=== PATIENT | male | born 1975 | race Caucasian/White ===

== ENCOUNTER 2022-06-24 13:10 | Inpatient (IN) ==
--- NOTE | 2022-06-24 13:26 | Emergency Department Note ---
Impression & Plan Depression with suicidal ideation, History of epilepsy ED Provider Note NAME: CASEY RESTREPO AGE: 47 SEX: M : 1975 ARRIVES VIA: Ambulance INFORMANT: Patient, ED PROVIDER(S): Gabriel Haji MD Chief Complaint: Suicidal ideation HPI: Patient presents with suicidal ideation and depression. The patient is u ndomiciled but currently living with a brother locally. The patient had come from the [facility] to try and repair relationship with his estranged . The patient does smoke tobacco as well as marijuana but no drug or alcohol use. 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 Patient states that he had a razor blade and was considering killing himself with that last evening but that his brother had talked him down. He is currently living in a trailer with his brother. Patient denies any HI. The patient does occasionally have auditory hallucinations words his own voice, questioning what he is doing. Patient denies any command hallucinations. No visual hallucinations. The patient denies any access to guns or weapons. Patient was last inpatient in [place]. Patient was last seen here in the emergency department 1 to 2 months ago. Patient has not been taking his medications for approximately 1 week. MDM: Patient presents due to concern for suicidal ideation with a plan to try and cut himself. Patient did have blood work completed was seen and evaluated by psych residential case manager after being deemed medically clear. Referrals were made for i npatient psychiatric admission. Patient was admitted to [facility] for inpatient psychiatric admission. ROS: See HPI for pertinent positives and negatives. A total of 10 systems were reviewed and otherwise negative. Past medical history: See below Surgical history: See below Social history: See below Physical Exam: GENERAL: NAD, nontoxic. Cleft palate s/p repair noted. EYE EXAM: Normal conjunctiva. PERRL, no anisocoria and EOM's grossly intact w/o pain. NECK: Supple, no nuchal rigidity, no adenopathy, non-tender. No signs of meningismus. FROM of the neck with good chin to chest and neck extension. No stridor. LUNGS: Clear to auscultation. Normal chest wall mechanics. HEART: NSR, no MRG. ABDOMEN: Abdomen soft, non-tender, normo-active bowel sounds, no masses, no rebound or guarding. BACK: No CVA TTP. SKIN: No rashes and no bruising. UPPER EXTREMITIES: Upper extremities are grossly normal. LOWER EXTREMITIES: Grossly normal, no edema. NEURO EXAM: A&O x3, cranial nerves II-XII grossly intact, normal speech, moves all 4 extremities. Psych: Positive SI with plan negative HI or VH. Positive auditory hallucinations Differential diagnoses: Mood disorder, infection, hypoglycemia, electrolyte abnormalities, cardiac sources, intracerebral event, toxicologic, trauma, neurologic, as well as other pathologies. Course: Patient was seen and evaluated the bedside. Full history physical exam was performed. 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 No pertinent family history Seizure Surgical History History of repair of congenital cleft palate Social History Smoking Status: Current some day smoker Tobacco Type: Cigarettes Preferred Language: Vietnamese Feels Safe at Home: Yes, No and Declines to Answer Home Meds Home Medications Medication Instructions Recorded Confirmed levetiracetam 500 mg tablet 1,000 mg PO UD 05/13/22 06/24/22 paroxetine HCl 1 tab PO DAILY 06/24/22 06/24/22 Results & Data (ED) Vital Signs Vital Signs - 24 hr 06/24/22 12:57 06/24/22 13:01 06/24/22 16:16 Temperature 36.6 C Temperature Source Oral Pulse Rate 95 H Pulse Rate [Apical] 95 H 68 Respiratory Rate 18 16 16 Blood Pressure 137/93 Blood Pressure [Left Arm] 137/93 128/88 Blood Pressure Mean 107 Blood Pressure Mean [Left Arm] 107 101 Pulse Oximetry 99 99 95 Sepsis Recent Fever Within 48 Hours No Sepsis New/Unexplained Change in Mental Status No Sepsis Action Taken by Nursing No Action Required Home Medications Current Medication List: was personally reviewed by me Laboratory Data Attestation: I reviewed the patient's lab results. Result diagrams: 06/24/22 14:09 06/24/22 14:09 Lab Results 06/24/22 06/24/22 06/24/22 Range/Units 13:30 13:30 13:32 WBC (4.8-10.8) K/ul RBC (4.63-6.08) M/uL Hgb (14.0-18.0) g/dl Hct (40.1-51.0) % MCV (80.0-100.0) fL MCH (25.0-34.0) pg MCHC (32.0-36.0) g/dL RDW Std Deviation (36.4-46.3) fL RDW Coeff of Whitney (11.5-14.5) % Plt Count (130-400) K/uL MPV (9.4-12.4) fL Immature Gran % (Auto) % Neut % (Auto) % Lymph % (Auto) % [place] % (Auto) % Eos % (Auto) % Baso % (Auto) % Neut # (Auto) (1.4-6.5) K/uL Lymph # (Auto) (1.2-3.4) K/uL [place] # (Auto) (0.24-0.82) K/uL Eos # (Auto) (0-0.50) K/uL Baso # (Auto) (0-0.2) K/uL Immature Gran # (Auto) (0.00-0.02) K/uL Sodium (136-145) mmol/L Potassium (3.5-5.1) mmol/L Chloride (98-107) mmol/L Carbon Dioxide (21-32) mmol/L Anion Gap (3-11) BUN (6-23) mg/dl Creatinine (0.6-1.4) mg/dl Est Cr Clr Drug Dosing ml/min Est GFR ( Amer) ml/min Est GFR (Non-Af Amer) ml/min BUN/Creatinine Ratio (10-20) Glucose (70-99(Fasting)) mg/dl Calcium (8.5-10.1) mg/dl Total Bilirubin (0.2-1.0) mg/dl AST (13-39) U/L ALT (7-52) U/L Alkaline Phosphatase (34-104) U/L Total Protein (6.0-8.3) gm/dl Albumin (3.4-5.0) gm/dl Globulin (2.5-4.0) gm/dl Albumin/Globulin Ratio (0.9-2) TSH (0.300-4.500) uIu/ml Urine Color Dark Yellow Urine Appearance Clear (Clear) Urine pH 5.0 (4.5-7.5) Ur Specific [place] 1.026 (1.000-1.030) Urine Protein Trace H (Negative) Urine Glucose (UA) 2+ H (Negative) Urine Ketones Trace H (Negative) Urine Blood Negative (Negative) Urine Nitrite Negative (Negative) Urine Bilirubin 1+ H (Negative) Urine Urobilinogen Negative (Negative) Ur Leukocyte Esterase Negative (Negative) Urine WBC (Auto) 1-5 (0-5) /hpf Urine RBC (Auto) 0-4 (0-4) /hpf U Hyaline Cast (Auto) 1-5 (0-5) /lpf U Epithel Cells (Auto) 10-20 H (0-5) /lpf Urine Bacteria (Auto) Negative (Negative) Salicylates (3.0-30) mg/dl Urine Opiates Screen Pos H (Neg) Ur Methadone, Qual Neg (Neg) Acetaminophen (10-30) ug/ml Urine Barbiturates Neg (Neg) Ur Phencyclidine (PCP) Neg (Neg) U Amphetamin/Meth Scrn Neg (Neg) MDMA (Ecstasy) Screen Neg (Neg) U Benzodiazepines Scrn Neg (Neg) Ur Cocaine Metabolite Neg (Neg) U Marijuana (THC) Screen Pos H (Neg) Ethyl Alcohol mg/dL (<10.0) mg/dl SARS-CoV-2, RNA, NAAT NEGATIVE (NEGATIVE) 06/24/22 06/24/22 06/24/22 Range/Units 14:09 14:09 14:09 WBC 6.85 (4.8-10.8) K/ul RBC 5.00 (4.63-6.08) M/uL Hgb 15.5 (14.0-18.0) g/dl Hct 44.0 (40.1-51.0) % MCV 88.0 (80.0-100.0) fL MCH 31.0 (25.0-34.0) pg MCHC 35.2 (32.0-36.0) g/dL RDW Std Deviation 42.9 (36.4-46.3) fL RDW Coeff of Whitney 13.2 (11.5-14.5) % Plt Count 185 (130-400) K/uL MPV 10.1 (9.4-12.4) fL Immature Gran % (Auto) 0.3 % Neut % (Auto) 50.8 % Lymph % (Auto) 34.2 % [place]one % (Auto) 11.7 % Eos % (Auto) 1.5 % Baso % (Auto) 1.5 % Neut # (Auto) 3.49 (1.4-6.5) K/uL Lymph # (Auto) 2.34 (1.2-3.4) K/uL [place]one # (Auto) 0.80 (0.24-0.82) K/uL Eos # (Auto) 0.10 (0-0.50) K/uL Baso # (Auto) 0.10 (0-0.2) K/uL Immature Gran # (Auto) 0.02 (0.00-0.02) K/uL Sodium 139 (136-145) mmol/L Potassium 4.6 (3.5-5.1) mmol/L Chloride 106 (98-107) mmol/L Carbon Dioxide 25 (21-32) mmol/L Anion Gap 8 (3-11) BUN 10 (6-23) mg/dl Creatinine 0.93 (0.6-1.4) mg/dl Est Cr Clr Drug Dosing 89.3 ml/min Est GFR ( Amer) 112.1 ml/min Est GFR (Non-Af Amer) 96.7 ml/min BUN/Creatinine Ratio 10.8 (10-20) Glucose 81 (70-99(Fasting)) mg/dl Calcium 9.6 (8.5-10.1) mg/dl Total Bilirubin 0.6 (0.2-1.0) mg/dl AST 17 (13-39) U/L ALT 12 (7-52) U/L Alkaline Phosphatase 68 (34-104) U/L Total Protein 7.3 (6.0-8.3) gm/dl Albumin 4.4 (3.4-5.0) gm/dl Globulin 2.9 (2.5-4.0) gm/dl Albumin/Globulin Ratio 1.5 (0.9-2) TSH 0.886 (0.300-4.500) uIu/ml Urine Color Urine Appearance (Clear) Urine pH (4.5-7.5) Ur Specific [place] (1.000-1.030) Urine Protein (Negative) Urine Glucose (UA) (Negative) Urine Ketones (Negative) Urine Blood (Negative) Urine Nitrite (Negative) Urine Bilirubin (Negative) Urine Urobilinogen (Negative) Ur Leukocyte Esterase (Negative) Urine WBC (Auto) (0-5) /hpf Urine RBC (Auto) (0-4) /hpf U Hyaline Cast (Auto) (0-5) /lpf U Epithel Cells (Auto) (0-5) /lpf Urine Bacteria (Auto) (Negative) Salicylates (3.0-30) mg/dl Urine Opiates Screen (Neg) Ur Methadone, Qual (Neg) Acetaminophen (10-30) ug/ml Urine Barbiturates (Neg) Ur Phencyclidine (PCP) (Neg) U Amphetamin/Meth Scrn (Neg) MDMA (Ecstasy) Screen (Neg) U Benzodiazepines Scrn (Neg) Ur Cocaine Metabolite (Neg) U Marijuana (THC) Screen (Neg) Ethyl Alcohol mg/dL (<10.0) mg/dl SARS-CoV-2, RNA, NAAT (NEGATIVE) 06/24/22 06/24/22 Range/Units 14:09 14:09 WBC (4.8-10.8) K/ul RBC (4.63-6.08) M/uL Hgb (14.0-18.0) g/dl Hct (40.1-51.0) % MCV (80.0-100.0) fL MCH (25.0-34.0) pg MCHC (32.0-36.0) g/dL RDW Std Deviation (36.4-46.3) fL RDW Coeff of Whitney (11.5-14.5) % Plt Count (130-400) K/uL MPV (9.4-12.4) fL Immature Gran % (Auto) % Neut % (Auto) % Lymph % (Auto) % [place] % (Auto) % Eos % (Auto) % Baso % (Auto) % Neut # (Auto) (1.4-6.5) K/uL Lymph # (Auto) (1.2-3.4) K/uL [place] # (Auto) (0.24-0.82) K/uL Eos # (Auto) (0-0.50) K/uL Baso # (Auto) (0-0.2) K/uL Immature Gran # (Auto) (0.00-0.02) K/uL Sodium (136-145) mmol/L Potassium (3.5-5.1) mmol/L Chloride (98-107) mmol/L Carbon Dioxide (21-32) mmol/L Anion Gap (3-11) BUN (6-23) mg/dl Creatinine (0.6-1.4) mg/dl Est Cr Clr Drug Dosing ml/min Est GFR ( Amer) ml/min Est GFR (Non-Af Amer) ml/min BUN/Creatinine Ratio (10-20) Glucose (70-99(Fasting)) mg/dl Calcium (8.5-10.1) mg/dl Total Bilirubin (0.2-1.0) mg/dl AST (13-39) U/L ALT (7-52) U/L Alkaline Phosphatase (34-104) U/L Total Protein (6.0-8.3) gm/dl Albumin (3.4-5.0) gm/dl Globulin (2.5-4.0) gm/dl Albumin/Globulin Ratio (0.9-2) TSH (0.300-4.500) uIu/ml Urine Color Urine Appearance (Clear) Urine pH (4.5-7.5) Ur Specific [place] (1.000-1.030) Urine Protein (Negative) Urine Glucose (UA) (Negative) Urine Ketones (Negative) Urine Blood (Negative) Urine Nitrite (Negative) Urine Bilirubin (Negative) Urine Urobilinogen (Negative) Ur Leukocyte Esterase (Negative) Urine WBC (Auto) (0-5) /hpf Urine RBC (Auto) (0-4) /hpf U Hyaline Cast (Auto) (0-5) /lpf U Epithel Cells (Auto) (0-5) /lpf Urine Bacteria (Auto) (Negative) Salicylates < 3.0 L (3.0-30) mg/dl Urine Opiates Screen (Neg) Ur Methadone, Qual (Neg) Acetaminophen < 3 L (10-30) ug/ml Urine Barbiturates (Neg) Ur Phencyclidine (PCP) (Neg) U Amphetamin/Meth Scrn (Neg) MDMA (Ecstasy) Screen (Neg) U Benzodiazepines Scrn (Neg) Ur Cocaine Metabolite (Neg) U Marijuana (THC) Screen (Neg) Ethyl Alcohol mg/dL < 10.0 (<10.0) mg/dl SARS-CoV-2, RNA, NAAT (NEGATIVE) Administered Medications Nicotine (Nicotine 21 Mg/24 Hr Tdsy) 21 mg TD QAM OSCAR Stop: 07/24/22 16:14 Last Admin: 06/24/22 16:24 Dose: Not Given Documented By: BK Discontinued Medications Levetiracetam (Levetiracetam 500 Mg Tab) 1,000 mg PO ONE ONE Stop: 06/24/22 16:07 Last Admin: 06/24/22 16:20 Dose: 1,000 mg Documented By: CONNIE Nicotine (Nicotine 21 Mg/24 Hr Tdsy) Confirm Administered Dose 21 mg TD .STK-MED ONE Stop: 06/24/22 14:14 Last Admin: 06/24/22 14:20 Dose: 21 mg Documented By: NRScott Discharge Plan Visit Data Chief Complaint: Mental Health Evaluation Stated Complaint: [facility]ID ED Provider: Gabriel Haji Discharge Problem: Depression with suicidal ideation, History of epilepsy Forms Stand Alone Forms: [facility], Suicide Prevention Resources Prescriptions Prescriptions: No Action levetiracetam 500 mg tablet 1,000 mg PO UD paroxetine HCl 10 mg 1 tab PO DAILY Rx Instructions: called pharmacy 10mg Referrals Referrals: PCP,NO [Primary Care Provider] -
[2022-06-24] MEDS ORDERED: NICOTINE 21 MG/24 HR TDSY TD ONE (14:13)
[2022-06-24 14:20] LABS: Appearance Urine Clear (Clear); Bacteria Urine Automated Negative (Negative); Blood Urine Negative (Negative); Color Urine Dark Yellow; Glucose Urine UA 2+ (Negative); Ketones Urine Trace (Negative); Leukocyte Esterase Urine Negative (Negative); Nitrite Urine Negative (Negative); Protein Urine Trace (Negative); RBC Urine Automated 0-4 /hpf (0-4); Specific Gravity Urine 1.026 (1.000-1.030); Urobilinogen Urine Negative (Negative)
[2022-06-24 14:23] LABS: Basophils % (auto) 1.5 %; Eosinophils % (auto) 1.5 %; Hemoglobin 15.5 g/dl (14.0-18.0); Immature Granulocytes # (auto) 0.02 K/uL (0.00-0.02); Immature Granulocytes % (auto) 0.3 %; Lymphocytes # (auto) 2.34 K/uL (1.2-3.4); Lymphocytes % (auto) 34.2 %; Mean Corpuscular Hgb Conc 35.2 g/dL (32.0-36.0); Mean Platelet Volume 10.1 fL (9.4-12.4); Monocytes % (auto) 11.7 %; Neutrophils # (auto) 3.49 K/uL (1.4-6.5); Neutrophils % (auto) 50.8 %; Platelet Count 185 K/uL (130-400); RDW Coefficient of Variation 13.2 % (11.5-14.5); RDW Standard Deviation 42.9 fL (36.4-46.3); White Blood Count 6.85 K/ul (4.8-10.8)
[2022-06-24 14:25] LABS: Bilirubin Urine 1+ (Negative)
[2022-06-24 14:35] LABS: Amphetamines+Metham, Urine Neg (Neg); Barbiturates, Urine Neg (Neg); Benzodiazepine, Urine Neg (Neg); Cocaine, Urine Neg (Neg); MDMA (Ecstacy), Urine Neg (Neg); Methadone, Urine Neg (Neg); Opiate, Urine Pos (Neg); Phencyclidine, Urine Neg (Neg)
[2022-06-24 14:47] LABS: Acetaminophen < 3 ug/ml (10-30); Albumin Globulin Ratio 1.5 (0.9-2); Albumin Level 4.4 gm/dl (3.4-5.0); BUN Creatinine Ratio 10.8 (10-20); Bilirubin,Total 0.6 mg/dl (0.2-1.0); Calcium 9.6 mg/dl (8.5-10.1); Creatinine Clr Calc Pharmacy 89.3 ml/min; Est GFR (African American) 112.1 ml/min; Est GFR (Non-African American) 96.7 ml/min; Globulin 2.9 gm/dl (2.5-4.0); Potassium 4.6 mmol/L (3.5-5.1); Salicylate < 3.0 mg/dl (3.0-30); Total Protein 7.3 gm/dl (6.0-8.3)
[2022-06-24] MEDS ORDERED: levETIRAcetam 500 MG TAB PO ONE (16:06)
[2022-06-24] MEDS ORDERED: NICOTINE 21 MG/24 HR TDSY TD SCH (16:15)
[2022-06-24] MEDS ORDERED: BISMUTH SUBSALICYLATE LIQD 236 ML PO PRN (19:18)
[2022-06-24] MEDS ORDERED: hydrOXYzine HCl 25 MG TAB PO PRN (19:18)
[2022-06-24] MEDS ORDERED: MAGNESIUM HYDROXIDE SUSP 30 ML UDC PO PRN (19:18)
[2022-06-24] MEDS ORDERED: ACETAMINOPHEN 325 MG TAB PO PRN (19:18)
[2022-06-24] MEDS ORDERED: SODIUM CHLORIDE 0.65% NA SOLN 45 ML (OCEAN) PRN (19:18)
[2022-06-24] MEDS ORDERED: ALUMINUM/MAGNESIUM SUSP 30 ML UDC PO PRN (19:18)
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
[2022-06-25] MEDS: PARoxetine HCL 10 MG TAB PO SCH (14:07)
[2022-06-25] MEDS: levETIRAcetam 500 MG TAB PO SCH (14:07)
[2022-06-25] MEDS ORDERED: NICOTINE POLACRILEX 2 MG GUM MT PRN (19:16)
[2022-06-25] MEDS: NICOTINE 21 MG/24 HR TDSY TD SCH (20:41)
[2022-06-26] MEDS: hydrOXYzine HCl 25 MG TAB PO PRN ×2 (00:52→21:16)
[2022-06-26] MEDS: levETIRAcetam 500 MG TAB PO SCH (08:56)
[2022-06-26] MEDS: PARoxetine HCL 10 MG TAB PO SCH (08:56)
--- NOTE | 2022-06-26 12:16 | Psychiatric Progress Note ---
Date of Service June 26, 2022 Impression / Recommendations Impression 47 yo male, unreliable historian, presented to ED for 2nd time in 6 weeks with SI and inability to return to brother's home. He denies substance abuse but did not have an explanation for testing positive for opioids. He reports SI but is clearly seeking assitance with relocating. 06/26/22: benefiting from supportive interventions (1) Depression with suicidal ideation: (2) History of epilepsy: Plan 06/26/22: continue current medication and tx plan. 06/25/22: The patient was admitted to the [facility] on q15 min checks (behavioral with suicide precautions) for safety. The patient will participate in group, recreational, and milieu therapies and will be offered additional individual and family sessions as clinically appropriate. Patient desires continue his prescribed keppra and Paxil, poor recent compliance. Is on seizure precautions. Inventory Assets Strengths: help seeking, has utilized community resources successfully in [place]. Needs: resume outpatient care, housing Suicide Risk Level Suicide Risk Level: Moderate (q15 min suicide checks) Risk Factors Assessment Male: Yes : Yes Do You Have Access To A Gun?: No Health Problems: Yes Substance Use Disorders: Yes Previous Attempt: Yes Previous Psychiatric Hospitalization: Yes Protective Factors Assessment Responsible for Young Children: No Employed: No Supportive Family: No Interval History Identifying Information CASEY RESTREPO is a 47-year-old M who lists address as [place] but is currently undomiciled, hx of ED consult early May, has a history of substance dependence and depression, and was admitted on 06/24/22 16:37 on a 201 voluntary commitment for SI with plan. Chief Complaint "if I feel that way again I'll turn in my glasses" (referring to his thoughts to self injure with glasses last pm) Review of Systems Sleep Information Total Hours of Sleep: 4.5 Meal Information Percent Meal Consumed - Breakfast: 100 Percent Meal Consumed - Lunch: 100 Percent Meal Consumed - Dinner: 100 Subjective Subjective Patient was seen & assessed and interval progress reviewed with nursing and social work. Patient expressed SI with urge to SIB last pm. Today he is feeling better, sleep was disrupted by having to move rooms due to heating issue. denies issues with med restart. Physical Exam Psychiatric Orientation: alert and oriented x 3 Apperance: appropriately dressed and appropriately groomed Eye Contact: good eye contact Motor Behavior: no abnormal motor movements Speech: normal rate/rhythm/volume of speech Affect: + depressed affect Mood: + depressed mood Thought Process: + concrete thought process Thought Content: reality based without delusions Suicidal Thoughts: denies suicidal plan and denies suicidal intent; + reports suicidal thoughts (intermittent, chronic) Homicidal Thoughts: denies homicidal thoughts Hallucinations: no auditory hallucinations and no visual hallucinations Cognition: attention grossly intact and language grossly intact Estimated Intelligence: consistent with education level Insight: + limited insight Judgement: + limited judgement Vital Signs (Past 24 Hours) Last Vital Signs Temp 36.8 C 06/26/22 06:44 Pulse 88 06/26/22 06:46 Resp 18 06/26/22 06:44 BP 110/68 06/26/22 06:46 Pulse Ox 99 06/24/22 17:30 O2 Del Method 06/24/22 17:30 Results & Data ([facility]) Current Inpatient Medications Current Inpatient Medications: Current Inpatient Medications Acetaminophen (Acetaminophen 325 Mg Tab) 650 mg PO Q4H PRN PRN Reason: Headache or Minor Fever Stop: 07/24/22 19:17 Al Hydrox/Mg Hydrox/Simethicone (Aluminum/Magnesium Susp 30 Ml Udc) 30 ml PO Q4H PRN PRN Reason: GI Upset Stop: 07/24/22 19:17 Bismuth Subsalicylate (Bismuth Subsalicylate Liqd 236 Ml) 15 ml PO PRN PRN PRN Reason: Loose Stool Stop: 07/24/22 19:17 Hydroxyzine HCl (Hydroxyzine Hcl 25 Mg Tab) 50 mg PO HSZ PRN PRN Reason: Insomnia Stop: 07/24/22 19:17 Last Admin: 06/26/22 00:52 Dose: 50 mg Hydroxyzine HCl (Hydroxyzine Hcl 25 Mg Tab) 25 mg PO Q4H PRN PRN Reason: Anxiety Stop: 07/24/22 19:17 Levetiracetam (Levetiracetam 500 Mg Tab) 1,000 mg PO QAM [facility] Stop: 07/25/22 13:44 Last Admin: 06/26/22 08:56 Dose: 1,000 mg Magnesium Hydroxide (Magnesium Hydroxide Susp 30 Ml Udc) 30 ml PO DAILY PRN PRN Reason: Constipation Stop: 07/24/22 19:17 Miscellaneous (Remove Nicoderm Patch) 1 each N/A DAILY@2058 [facility] Stop: 07/26/22 20:58 Nicotine (Nicotine 21 Mg/24 Hr Tdsy) 21 mg TD QPM [facility] Stop: 07/25/22 20:59 Last Admin: 06/25/22 20:41 Dose: 21 mg Nicotine Polacrilex (Nicotine Polacrilex 2 Mg Gum) 1 piece MT PRN PRN PRN Reason: Smoking cessation Stop: 07/25/22 19:15 Paroxetine HCl (Paroxetine Hcl 10 Mg Tab) 10 mg PO DAILY [facility] Stop: 07/25/22 13:44 Last Admin: 06/26/22 08:56 Dose: 10 mg Sodium Chloride (Sodium Chloride 0.65% Na Soln 45 Ml ([place])) 1 - 2 sprays NA PRN PRN PRN Reason: Nasal Dryness/Congestion Stop: 07/24/22 19:17 Mental Health & Subst Abuse Tx Hand Sewer Shoes Name of Hand Sewer Shoes: Yanelis Bullard (??)
[2022-06-26] MEDS ORDERED: Nursing to Pharmacy Communication SCH (20:30)
[2022-06-26] MEDS: NICOTINE 21 MG/24 HR TDSY TD SCH (21:04)
[2022-06-27 04:48] LABS: Codeine Urine NEGATIVE ng/mL (<50); Hydrocodone Urine NEGATIVE ng/mL (<50); Hydromor Urine 152 ng/mL (<50); Marijuana Quant, GCMS Urine >5000 ng/mL (<5); Morphine Urine NEGATIVE ng/mL (<50); Norhydrocodone Conf Ur 53 ng/mL (<50); Noroxycodone Urine NEGATIVE ng/mL (<50); Oxycodone Urine NEGATIVE ng/mL (<50); Oxymorph Urine NEGATIVE ng/mL (<50)
[2022-06-27] MEDS: PARoxetine HCL 10 MG TAB PO SCH (09:27)
[2022-06-27] MEDS: NICOTINE 21 MG/24 HR TDSY TD SCH (09:27)
[2022-06-27] MEDS: levETIRAcetam 500 MG TAB PO SCH (09:27)
--- NOTE | 2022-06-27 13:03 | Psychiatric Progress Note ---
Date of Service June 27, 2022 Impression / Recommendations Impression 47 yo male, unreliable historian, presented to ED for 2nd time in 6 weeks with SI and inability to return to brother's home. He denies substance abuse but did not have an explanation for testing positive for opioids. He reports SI and has a history of chronic SI. He is also seeking assistance with relocating to [place] as he is currently homeless. Diagnostically consistent with major depression. 06/27/22: still with depression and SI but improving with interventions and re- initiation of medication. Has no safe discharge plan. (1) Depression with suicidal ideation: (2) History of epilepsy: Plan 06/27/22: Continue current medications and treatment plan. 06/26/22: continue current medication and tx plan. 06/25/22: The patient was admitted to the [facility] ([facility]) on q15 min checks (behavioral with suicide precautions) for safety. The patient will participate in group, recreational, and milieu therapies and will be offered additional individual and family sessions as clinically appropriate. Patient desires continue his prescribed keppra and Paxil, poor recent compliance. Is on seizure precautions. Inventory Assets Strengths: help seeking, has utilized community resources successfully in [place]. Needs: resume outpatient care, housing Suicide Risk Level Suicide Risk Level: Moderate (q15 min suicide checks) (depression and SI but no plan or intent and agrees to alert nursing if he feels unsafe or develops SI with plan or intent) Risk Factors Assessment Male: Yes : Yes Do You Have Access To A Gun?: No Health Problems: Yes Substance Use Disorders: Yes Previous Attempt: Yes Previous Psychiatric Hospitalization: Yes Protective Factors Assessment Responsible for Young Children: No Employed: No Supportive Family: No Interval History Identifying Information CASEY RESTREPO is a 47-year-old M who lists address as [place] but is currently undomiciled, hx of ED consult early May, has a history of substance dependence and depression, and was admitted on 06/24/22 16:37 on a 201 voluntary commitment for SI with plan. Chief Complaint "I wish I cared more about my own life". Review of Systems Sleep Information Total Hours of Sleep: 7.5 Meal Information Percent Meal Consumed - Breakfast: 100 Percent Meal Consumed - Lunch: 100 Percent Meal Consumed - Dinner: 100 Subjective Subjective Patient was seen & assessed and interval progress reviewed with treatment team nursing and social work. Endorses ongoing depression and SI but no plan or intent for the hospital. Slept well overnight after one dose of Vistaril prn. Feels restarting his medication is helping his mood and denies any side effects. More sad in the evenings. Physical Exam Psychiatric Orientation: alert and oriented x 3 Apperance: appropriately dressed and appropriately groomed Eye Contact: good eye contact Motor Behavior: no abnormal motor movements Speech: normal rate/rhythm/volume of speech Affect: + depressed affect Mood: + depressed mood Thought Process: + concrete thought process Thought Content: reality based without delusions Suicidal Thoughts: denies suicidal plan and denies suicidal intent; + reports suicidal thoughts (intermittent, chronic) Homicidal Thoughts: denies homicidal thoughts Hallucinations: no auditory hallucinations and no visual hallucinations Cognition: attention grossly intact and language grossly intact Estimated Intelligence: consistent with education level Insight: + limited insight Judgement: + limited judgement Vital Signs (Past 24 Hours) Last Vital Signs Temp 36.8 C 06/27/22 06:00 Pulse 83 06/27/22 06:38 Resp 18 06/27/22 06:00 BP 128/79 06/27/22 06:38 Pulse Ox 97 06/27/22 06:00 O2 Del Method 06/27/22 06:00 Results & Data ([facility]) Laboratory Results Laboratory Results - last 24 hr 06/24/22 13:30 U Codeine Confrm GC/MS NEGATIVE Ur Morphine (GC/MS) NEGATIVE Ur Hydrocodone (GC/MS) NEGATIVE Ur Norhydrocodone 53 H Ur Noroxycodone NEGATIVE Urine Oxycodone (GC/MS) NEGATIVE U Oxymorphone GC/MS NEGATIVE Ur Hydromorphone (GC/MS) 152 H U Marijuana THC Carboxy >5000 H Drug Screen Comment SEE NOTE Current Inpatient Medications Current Inpatient Medications: Current Inpatient Medications Acetaminophen (Acetaminophen 325 Mg Tab) 650 mg PO Q4H PRN PRN Reason: Headache or Minor Fever Stop: 07/24/22 19:17 Al Hydrox/Mg Hydrox/Simethicone (Aluminum/Magnesium Susp 30 Ml Udc) 30 ml PO Q4H PRN PRN Reason: GI Upset Stop: 07/24/22 19:17 Bismuth Subsalicylate (Bismuth Subsalicylate Liqd 236 Ml) 15 ml PO PRN PRN PRN Reason: Loose Stool Stop: 07/24/22 19:17 Hydroxyzine HCl (Hydroxyzine Hcl 25 Mg Tab) 50 mg PO HSZ PRN PRN Reason: Insomnia Stop: 07/24/22 19:17 Last Admin: 06/26/22 21:16 Dose: 50 mg Hydroxyzine HCl (Hydroxyzine Hcl 25 Mg Tab) 25 mg PO Q4H PRN PRN Reason: Anxiety Stop: 07/24/22 19:17 Levetiracetam (Levetiracetam 500 Mg Tab) 1,000 mg PO QAM [facility] Stop: 07/25/22 13:44 Last Admin: 06/27/22 09:27 Dose: 1,000 mg Magnesium Hydroxide (Magnesium Hydroxide Susp 30 Ml Udc) 30 ml PO DAILY PRN PRN Reason: Constipation Stop: 07/24/22 19:17 Miscellaneous (Remove Nicoderm Patch) 1 each N/A DAILY@2100 [facility] Stop: 07/27/22 20:59 Nicotine (Nicotine 21 Mg/24 Hr Tdsy) 21 mg TD QAM [facility] Stop: 07/27/22 08:59 Last Admin: 06/27/22 09:27 Dose: 21 mg Nicotine Polacrilex (Nicotine Polacrilex 2 Mg Gum) 1 piece MT PRN PRN PRN Reason: Smoking cessation Stop: 07/25/22 19:15 Paroxetine HCl (Paroxetine Hcl 10 Mg Tab) 10 mg PO DAILY [facility] Stop: 07/25/22 13:44 Last Admin: 06/27/22 09:27 Dose: 10 mg Sodium Chloride (Sodium Chloride 0.65% Na Soln 45 Ml ([place])) 1 - 2 sprays NA PRN PRN PRN Reason: Nasal Dryness/Congestion Stop: 07/24/22 19:17 Mental Health & Subst Abuse Tx Trophy Assembler Name of Trophy Assembler: Yanelis Bullard (??)
[2022-06-27] MEDS: hydrOXYzine HCl 25 MG TAB PO PRN (20:40)
[2022-06-28] MEDS: levETIRAcetam 500 MG TAB PO SCH (09:20)
[2022-06-28] MEDS: NICOTINE 21 MG/24 HR TDSY TD SCH (09:20)
[2022-06-28] MEDS: PARoxetine HCL 10 MG TAB PO SCH (09:20)
--- NOTE | 2022-06-28 12:08 | Psychiatric Progress Note ---
Date of Service June 28, 2022 Impression / Recommendations Impression 47 yo male, unreliable historian, presented to ED for 2nd time in 6 weeks with SI and inability to return to brother's home. He denies substance abuse but did not have an explanation for testing positive for opioids. He reports SI and has a history of chronic SI. He is also seeking assistance with relocating to [place] as he is currently homeless. Diagnostically consistent with major depression. 06/28/22: mood improving, denies SI, biggest barrier to discharge is access to transportation to [place]. (1) Depression with suicidal ideation: (2) History of epilepsy: Plan 06/28/22: Continue current medications and tx plan. 06/27/22: Continue current medications and treatment plan. 06/26/22: continue current medication and tx plan. 06/25/22: The patient was admitted to the [facility] ([facility]) on q15 min checks (behavioral with suicide precautions) for safety. The patient will participate in group, recreational, and milieu therapies and will be offered additional individual and family sessions as clinically appropriate. Patient desires continue his prescribed keppra and Paxil, poor recent compliance. Is on seizure precautions. Inventory Assets Strengths: help seeking, has utilized community resources successfully in [place]. Needs: resume outpatient care, housing Suicide Risk Level Suicide Risk Level: Moderate (q15 min suicide checks) (depression and SI prior to admission but mood improving, denies SI and agrees to alert nursing if he feels unsafe or develops SI with plan or intent) Risk Factors Assessment Male: Yes : Yes Do You Have Access To A Gun?: No Health Problems: Yes Substance Use Disorders: Yes Previous Attempt: Yes Previous Psychiatric Hospitalization: Yes Protective Factors Assessment Responsible for Young Children: No Employed: No Supportive Family: No Interval History Identifying Information CASEY RESTREPO is a 47-year-old M who lists address as [place] but is currently undomiciled, hx of ED consult early May, has a history of sub stance dependence and depression, and was admitted on 06/24/22 16:37 on a 201 voluntary commitment for SI with plan. Chief Complaint "I'm feeling better". Review of Systems Sleep Information Total Hours of Sleep: 8.25 Meal Information Percent Meal Consumed - Breakfast: 100 Percent Meal Consumed - Lunch: 100 Percent Meal Consumed - Dinner: 100 Subjective Subjective Patient was seen & assessed and interval progress reviewed with treatment team nursing and social work. Engaging in groups, social and supportive of peers. Feels his medication are helping and his mood is improving. Denies SI. Feels if he can return to [place] he will continue to do well as he has many supports there including easy access to mental health services and "I can get into a good routine there". Has a good friend who lives there who he would want to stay with. Physical Exam Psychiatric Orientation: alert and oriented x 3 Apperance: appropriately dressed and appropriately groomed Eye Contact: good eye contact Motor Behavior: no abnormal motor movements Speech: normal rate/rhythm/volume of speech Affect: euthymic affect Mood: + depressed mood Thought Process: goal directed thought process Thought Content: reality based without delusions Suicidal Thoughts: denies suicidal thoughts Homicidal Thoughts: denies homicidal thoughts Hallucinations: no auditory hallucinations and no visual hallucinations Cognition: attention grossly intact and language grossly intact Estimated Intelligence: consistent with education level Insight: + fair insight Judgement: + fair judgement Vital Signs (Past 24 Hours) Last Vital Signs Temp 37.1 C 06/27/22 21:16 Pulse 83 06/27/22 06:38 Resp 18 06/27/22 06:00 BP 128/79 06/27/22 06:38 Pulse Ox 97 06/27/22 06:00 O2 Del Method 06/27/22 06:00 Results & Data ([facility]) Current Inpatient Medications Current Inpatient Medications: Current Inpatient Medications Acetaminophen (Acetaminophen 325 Mg Tab) 650 mg PO Q4H PRN PRN Reason: Headache or Minor Fever Stop: 07/24/22 19:17 Al Hydrox/Mg Hydrox/Simethicone (Aluminum/Magnesium Susp 30 Ml Udc) 30 ml PO Q4H PRN PRN Reason: GI Upset Stop: 07/24/22 19:17 Bismuth Subsalicylate (Bismuth Subsalicylate Liqd 236 Ml) 15 ml PO PRN PRN PRN Reason: Loose Stool Stop: 07/24/22 19:17 Hydroxyzine HCl (Hydroxyzine Hcl 25 Mg Tab) 50 mg PO HSZ PRN PRN Reason: Insomnia Stop: 07/24/22 19:17 Last Admin: 06/27/22 20:40 Dose: 50 mg Hydroxyzine HCl (Hydroxyzine Hcl 25 Mg Tab) 25 mg PO Q4H PRN PRN Reason: Anxiety Stop: 07/24/22 19:17 Levetiracetam (Levetiracetam 500 Mg Tab) 1,000 mg PO QAM [facility] Stop: 07/25/22 13:44 Last Admin: 06/28/22 09:20 Dose: 1,000 mg Magnesium Hydroxide (Magnesium Hydroxide Susp 30 Ml Udc) 30 ml PO DAILY PRN PRN Reason: Constipation Stop: 07/24/22 19:17 Miscellaneous (Remove Nicoderm Patch) 1 each N/A DAILY@2100 [facility] Stop: 07/27/22 20:59 Last Admin: 06/27/22 20:40 Dose: 1 each Nicotine (Nicotine 21 Mg/24 Hr Tdsy) 21 mg TD QAM [facility] Stop: 07/27/22 08:59 Last Admin: 06/28/22 09:20 Dose: 21 mg Nicotine Polacrilex (Nicotine Polacrilex 2 Mg Gum) 1 piece MT PRN PRN PRN Reason: Smoking cessation Stop: 07/25/22 19:15 Paroxetine HCl (Paroxetine Hcl 10 Mg Tab) 10 mg PO DAILY [facility] Stop: 07/25/22 13:44 Last Admin: 06/28/22 09:20 Dose: 10 mg Sodium Chloride (Sodium Chloride 0.65% Na Soln 45 Ml ([place])) 1 - 2 sprays NA PRN PRN PRN Reason: Nasal Dryness/Congestion Stop: 07/24/22 19:17 Mental Health & Subst Abuse Tx Night Shift Manager Name of Night Shift Manager: Yanelis Bullard Post Discharge Appointments Contact Information Discharge Discharge Address: [place], [place]
[2022-06-28] MEDS: hydrOXYzine HCl 25 MG TAB PO PRN (20:42)
[2022-06-29] MEDS: levETIRAcetam 500 MG TAB PO SCH (08:29)
[2022-06-29] MEDS: PARoxetine HCL 10 MG TAB PO SCH (08:29)
[2022-06-29] MEDS: NICOTINE 21 MG/24 HR TDSY TD SCH (08:30)
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
== END 2022-06-29 12:28 | disposition home or self-care (01) | DRG 885 ==
LOC: ED 13:10 → 3S 16:37
DX: F19.94 Other psychoactive substance use, unspecified with psychoactive substance-induced mood disorder; Z86.69 Personal history of other diseases of the nervous system and sense organs; Z79.899 Other long term (current) drug therapy; R45.851 Suicidal ideations; F17.210 Nicotine dependence, cigarettes, uncomplicated; F33.9 Major depressive disorder, recurrent, unspecified